=== PATIENT | female | born 1960 | race African-American/Black ===

== ENCOUNTER 2017-10-30 13:38 | Emergency (ER) | payer MEDICAID ==
[~2017-10-30] VITALS: Ht 162.6 cm; Wt 54.4 kg
[2017-10-30 13:57] VITALS: BP 121/86
[2017-10-30] MEDS ORDERED: ASPIRIN EC81 MG ORAL (13:59)
[2017-10-30] MEDS ORDERED: VENTOLIN HFA18 GM INH (13:59)
[2017-10-30] MEDS ORDERED: LISINOPRIL40 MG ORAL (13:59)
[2017-10-30] MEDS ORDERED: METOPROLOL SUC100 MG ORAL (13:59)
[2017-10-30] MEDS ORDERED: ALBUTEROL2.5 MG/3 M INH (13:59)
[2017-10-30] MEDS ORDERED: DICLO GEL1 EACH TP (13:59)
[2017-10-30] MEDS ORDERED: BUTALB-ACETAMI1 EAC1 PO (13:59)
[2017-10-30] MEDS ORDERED: OMEPRAZOLE20 M3 ORAL (13:59)
[2017-10-30] MEDS ORDERED: BUDESONIDE0.5 GM MC (13:59)
[2017-10-30] MEDS ORDERED: HYDROCHLOROTHIA25 MG ORAL (13:59)
[2017-10-30 14:01] LABS: EOSINOPHILS % (AUTO) 1.4 % (0.0-3.0); HEMATOCRIT 49.9 % (37.0-47.0); HEMOGLOBIN 16.4 G/DL (12.0-16.0); LYMPHOCYTES % (AUTO) 38.9 % (20.0-45.0); MEAN CORPUSCULAR VOLUME 85 FL (80-99); NEUTROPHILS % (AUTO) 50.6 % (45.0-75.0); PLATELET COUNT 272 K/UL (150-450); RED BLOOD COUNT 5.88 M/UL (4.20-5.40); RED CELL DISTRIBUTION WIDTH 11.8 % (11.6-14.8); WHITE BLOOD COUNT 6.8 K/UL (4.8-10.8)
[2017-10-30 14:22] LABS: ANION GAP 8 mmol/L (5-15); BLOOD UREA NITROGEN 22 mg/dL (7-18); CALCIUM 9.4 MG/DL (8.5-10.1); CARBON DIOXIDE 29 MMOL/L (21-32); CHLORIDE 103 MMOL/L (98-107); CREATININE 1.2 MG/DL (0.55-1.30); POTASSIUM 3.7 MMOL/L (3.5-5.1); SODIUM 140 MMOL/L (136-145)
[2017-10-30 14:25] LABS: ALANINE AMINOTRANSFERASE 20 U/L (12-78); ALBUMIN 3.6 G/DL (3.4-5.0); ALBUMIN/GLOBULIN RATIO 0.9 (1.0-2.7); ALKALINE PHOSPHATASE 77 U/L (46-116); ASPARTATE AMINO TRANSFERASE 24 U/L (15-37); BILIRUBIN,TOTAL 0.4 MG/DL (0.2-1.0); CKMB 12.1 NG/ML (0.0-3.6); CREATINE KINASE 85 U/L (26-308)
[2017-10-30] MEDS ORDERED: Nitroglycerin 2% oint pkt TOPIC ONE (15:00)
[2017-10-30 16:09] VITALS: BP 124/74
--- NOTE | 2017-10-30 16:24 | Diagnostic Imaging Report ---
Indication: Chest pain Technique: One view of the chest Comparison: none Findings: The heart is enlarged. Lungs and pleural spaces are clear. Impression: Cardiomegaly No acute process
--- NOTE | 2017-10-30 17:52 | Emergency Room Report ---
History of Present Illness General Chief Complaint: Chest Pain Source: Patient, Medical Record Present Illness HPI She complains of chest pain. The patient states she has had intermittent chest pain for the past 3 days. She has a history of coronary artery disease, myocardial infarction and congestive heart failure. She admits that she did use cocaine 2 days ago. She has a long history of tobacco use. She denies recent illness. She has a chronic cough. She denies fever or chills. She denies nausea or vomiting. She has no other complaints. Allergies: Coded Allergies: No Known Allergies (Unverified , 10/30/17) Patient History Past Medical History: see triage record, DM, HTN, NM, CAD, CHF, COPD Social History: Reports: smoking, alcohol use, drug use - cocaine Reviewed Nursing Documentation: PMH: Agreed; PSxH: Agreed Nursing Documentation-PMH Hx Hypertension: Yes Hx COPD: Yes Review of Systems All Other Systems: negative except mentioned in HPI Physical Exam Vital Signs Date Time Temp Pulse Resp B/P (MAP) Pulse Ox O2 Delivery O2 Flow Rate FiO2 10/30/17 13:32 98.1 64 20 121/86 99 Room Air 98.1 Sp02 EP Interpretation: reviewed, normal General Appearance: no apparent distress, alert, GCS 15, non-toxic Head: normocephalic, atraumatic Eyes: bilateral eye normal inspection, bilateral eye PERRL ENT: hearing grossly normal, normal pharynx, no angioedema, normal voice Neck: full range of motion, supple/symm/no masses Respiratory: chest non-tender, lungs clear, normal breath sounds, no respiratory distress, no retraction, no accessory muscle use, speaking full sentences Cardiovascular #1: regular rate, rhythm, no edema Gastrointestinal: normal bowel sounds, non tender, soft, non-distended, no guarding, no rebound Rectal: deferred Musculoskeletal: back normal, gait/station normal, normal range of motion, non- tender Neurologic: alert, oriented x3, responsive, motor strength/tone normal, sensory intact, speech normal Psychiatric: judgement/insight normal, memory normal, mood/affect normal, no suicidal/homicidal ideation Skin: normal color, no rash, warm/dry, well hydrated Medical Decision Making Diagnostic Impression: Primary Impression: Chest pain ER Course Patient presents with chest pain. She she is high risk for acute coronary syndrome. She has a history of congestive heart failure, diabetes, COPD and ongoing cocaine abuse. Initial workup to include EKG, troponin and chest x-ray is unremarkable. However, I am uncomfortable sending this patient home. She responded to nitroglycerin. She was given aspirin. I felt that this patient should be admitted for observation and to rule out acute coronary syndrome. The patient's insurance company requested her transfer. The patient is stable for transfer. She was transferred to short-term hospital. Laboratory Tests Test 10/30/17 13:42 White Blood Count 6.8 K/UL (4.8-10.8) Red Blood Count 5.88 M/UL (4.20-5.40) H Hemoglobin 16.4 G/DL (12.0-16.0) H Hematocrit 49.9 % (37.0-47.0) H Mean Corpuscular Volume 85 FL (80-99) Mean Corpuscular Hemoglobin 27.9 PG (27.0-31.0) Mean Corpuscular Hemoglobin Concent 32.9 G/DL (32.0-36.0) Red Cell Distribution Width 11.8 % (11.6-14.8) Platelet Count 272 K/UL (150-450) Mean Platelet Volume 7.4 FL (6.5-10.1) Neutrophils (%) (Auto) 50.6 % (45.0-75.0) Lymphocytes (%) (Auto) 38.9 % (20.0-45.0) Monocytes (%) (Auto) 8.0 % (1.0-10.0) Eosinophils (%) (Auto) 1.4 % (0.0-3.0) Basophils (%) (Auto) 1.0 % (0.0-2.0) Sodium Level 140 MMOL/L (136-145) Potassium Level 3.7 MMOL/L (3.5-5.1) Chloride Level 103 MMOL/L (98-107) Carbon Dioxide Level 29 MMOL/L (21-32) Anion Gap 8 mmol/L (5-15) Blood Urea Nitrogen 22 mg/dL (7-18) H Creatinine 1.2 MG/DL (0.55-1.30) Estimate Glomerular Filtration Rate 46.2 mL/min (>60) Glucose Level 100 MG/DL (74-106) Calcium Level 9.4 MG/DL (8.5-10.1) Total Bilirubin 0.4 MG/DL (0.2-1.0) Aspartate Amino Transferase (AST) 24 U/L (15-37) Alanine Aminotransferase (ALT) 20 U/L (12-78) Alkaline Phosphatase 77 U/L (46-116) Total Creatine Kinase 85 U/L (26-308) Creatine Kinase MB 12.1 NG/ML (0.0-3.6) H Creatine Kinase MB Relative Index 14.2 Troponin I 0.000 ng/mL (0.000-0.056) Pro-B-Type Natriuretic Peptide 1302 pg/mL (0-125) H Total Protein 7.6 G/DL (6.4-8.2) Albumin 3.6 G/DL (3.4-5.0) Globulin 4.0 g/dL Albumin/Globulin Ratio 0.9 (1.0-2.7) L Lipase 117 U/L (73-393) EKG Diagnostic Results Rate: normal Rhythm: NSR ST Segments: other Other Impression NSST changes. Rhythm Strip Diag. Results EP Interpretation: yes Rate: 60's Rhythm: NSR, no PVC's, no ectopy Chest X-Ray Diagnostic Results Chest X-Ray Diagnostic Results : Chest X-Ray Ordered: Yes # of Views/Limited/Complete: 1 View Indication: Chest Pain EP Interpretation: No Interpretation: no acute cardiopulmonary disease, other - Cardiomegaly Impression: No acute disease Last Vital Signs Date Time Temp Pulse Resp B/P (MAP) Pulse Ox O2 Delivery O2 Flow Rate FiO2 10/30/17 16:09 98.1 78 18 124/74 97 Room Air 98.1 Status: improved Disposition: XFER SHT-TRM HOSP Condition: Stable Referrals: JERI MEDEL,REFERRING (PCP) ANU GIRARD D.O. Oct 30, 2017 17:52
[2017-10-30 19:04] VITALS: BP 110/76
[2017-10-30 19:55] VITALS: BP 131/76
--- NOTE | 2017-11-02 17:51 | Cardiology Report ---
APPROVED REPORT EKG Measurement Heart [id number] Normal sinus rhythm T wave abnormality, consider inferior ischemia T wave abnormality, consider anterolateral ischemia Abnormal ECG
== END 2017-10-30 19:55 | disposition short-term general hospital (02) ==
LOC: EDBD 13:38 → EMR 14:23 → EDBEDREQ 16:50 → EMR 19:55
DX: R07.9 Chest pain, unspecified (principal); J44.9 Chronic obstructive pulmonary disease, unspecified; E11.9 Type 2 diabetes mellitus without complications; I25.10 Atherosclerotic heart disease of native coronary artery without angina pectoris; I25.2 Old myocardial infarction; I11.0 Hypertensive heart disease with heart failure; I50.9 Heart failure, unspecified
CPT/HCPCS: 36415; 71045; 80053; 82550; 82553; 83690; 83880; 84484; 85025; 93005; 99285